=== PATIENT | female | born 1960 | race American Indian/Alaskan Native ===

== ENCOUNTER 2017-06-25 22:02 | Emergency (ER) | payer MEDICARE ==
[2017-06-25 22:07] VITALS: BP 110/68
--- NOTE | 2017-06-25 23:19 | Emergency Department Report ---
- General Chief Complaint: Upper Respiratory Infection Stated Complaint: COLD/FLU SX Time Seen by Provider: 06/25/17 22:36 Source: patient Mode of arrival: Ambulatory Limitations: No Limitations - History of Present Illness Initial Comments: 57-year-old -[place] female comes in for onset of sore throat cough and nasal congestion chest congestion headache nausea vomiting. Patient point she' s been taking [id number] medication last taken at 6 PM TheraFlu. Patient reports that she vomited 6-7 times on Friday and vomited one time today. She denies any wheezing no fever no chills. She reports no past medical history. Allergic to only be pollen and currently takes no chronic medications. MD Complaint: fever (low-grade), cough, sore throat, nasal congestion, other ( congestion) -: days(s) (3) Severity scale (0 -10): 8 Improves With: OTC cold medicine - Related Data Previous Rx's Medication Instructions Recorded Last Taken Type ALBUTEROL Inhaler [ProAir HFA 2 puff IH QID PRN #1 inhalation 06/26/17 Unknown Rx Inhaler] Benzonatate [Tessalon Perle] 100 mg PO TID PRN #30 capsule 06/26/17 Unknown Rx Levofloxacin [Levaquin TAB] 500 mg PO QDAY #5 tablet 06/26/17 Unknown Rx Allergies Allergy/AdvReac Type Severity Reaction Status Date / Time bee pollen Allergy Hives Verified 06/25/17 22:06 ED Review of Systems ROS: Stated complaint: COLD/FLU SX Other details as noted in HPI Constitutional: denies: chills, fever Eyes: denies: eye pain, eye discharge, vision change ENT: denies: ear pain, throat pain Respiratory: cough, shortness of breath Cardiovascular: denies: chest pain, palpitations Endocrine: no symptoms reported Gastrointestinal: nausea, vomiting. denies: abdominal pain, diarrhea Genitourinary: denies: urgency, dysuria, discharge Musculoskeletal: denies: back pain, joint swelling, arthralgia Skin: denies: rash, lesions Neurological: denies: headache, weakness, paresthesias Psychiatric: denies: anxiety, depression Hematological/Lymphatic: denies: easy bleeding, easy bruising ED Past Medical Hx - Past Medical History Previous Medical History?: No - Surgical History Additional Surgical History: Tubal ligation, knee, throat, Hyst - Social History Smoking Status: Never Smoker Substance Use Type: Alcohol - Medications Home Medications: Home Medications Medication Instructions Recorded Confirmed Last Taken Type ALBUTEROL Inhaler [ProAir HFA 2 puff IH QID PRN #1 inhalation 06/26/17 Unknown Rx Inhaler] Benzonatate [Tessalon Perle] 100 mg PO TID PRN #30 capsule 06/26/17 Unknown Rx Levofloxacin [Levaquin TAB] 500 mg PO QDAY #5 tablet 06/26/17 Unknown Rx ED Physical Exam - General Limitations: No Limitations General appearance: alert, in no apparent distress - Head Head exam: Present: atraumatic, normocephalic - Eye Eye exam: Present: normal appearance - ENT ENT exam: Present: mucous membranes moist - Expanded ENT Exam Expanded Throat exam: Positive: other (oropharynx erythematous) - Neck Neck exam: Present: normal inspection - Respiratory Respiratory exam: Present: normal lung sounds bilaterally. Absent: respiratory distress - Cardiovascular Cardiovascular Exam: Present: tachycardia - GI/Abdominal GI/Abdominal exam: Present: soft, normal bowel sounds - Extremities Exam Extremities exam: Present: normal inspection - Back Exam Back exam: Present: normal inspection - Neurological Exam Neurological exam: Present: alert, oriented X3 ED Course Vital Signs 06/25/17 22:06 Temperature 99.6 F Pulse Rate 100 H Respiratory 20 Rate Blood Pressure 110/68 O2 Sat by Pulse 96 Oximetry ED Medical Decision Making - Radiology Data Radiology results: report reviewed, image reviewed FINDINGS: Heart: Normal. Mediastinum/Vessels: Normal. Lungs/Pleural space: Subsegmental atelectatic changes are noted in bilateral lower lungs. An inhomogeneous patchy density is noted in the right lower lung. There is mild elevation of right hemidiaphragm. Pleural spaces are clear.. Bony thorax: No acute osseous abnormality. Other: IMPRESSION: A patchy density in the right lower lung most likely represent early infiltrates.. - Medical Decision Making Assessment evaluated by this provider fast track. Chest x-ray was ordered rapid strep ordered. Review of x-ray shows patient has early infiltrate. We' ll treat patient with Levaquin for 5 days. Have her follow up with her primary care provider. Critical care attestation.: If time is entered above; I have spent that time in minutes in the direct care of this critically ill patient, excluding procedure time. ED Disposition Clinical Impression: Pulmonary infiltrate in right lung on chest x-ray Disposition: [id number] TO HOME OR SELFCARE Is pt being admited?: No Does the pt Need Aspirin: No Condition: Stable Instructions: Community-acquired Pneumonia (ED) Additional Instructions: Please complete antibiotics as prescribed. He can take Tylenol or Motrin for fever. You can use an inhaler to help with her cough. Prescriptions: ALBUTEROL Inhaler [ProAir HFA Inhaler] 2 puff IH QID PRN #1 inhalation PRN Reason: Shortness Of Breath Benzonatate [Tessalon Perle] 100 mg PO TID PRN #30 capsule PRN Reason: Cough Levofloxacin [Levaquin TAB] 500 mg PO QDAY #5 tablet Referrals: EDER MASON MD [Primary Care Provider] - 3-5 Days Forms: Work/School Release Form(ED), Accompanied Note
[2017-06-25 23:40] LABS: Bilirubin,Urine NEG (Negative); Blood,Urine SM (Negative); Color,Urine Amber (Yellow); Hyaline Casts,Urine 6 /LPF; Mucus,Urine 3+ /HPF
--- NOTE | 2017-06-25 23:53 | XRay Report ---
FINAL REPORT PROCEDURE: XR CHEST ROUTINE 2V TECHNIQUE: PA and lateral chest radiographs were obtained. CPT 44882 HISTORY: chest congestion with low-grade fever COMPARISON: No prior studies are available for comparison. FINDINGS: Heart: Normal. Mediastinum/Vessels: Normal. Lungs/Pleural space: Subsegmental atelectatic changes are noted in bilateral lower lungs. An inhomogeneous patchy density is noted in the right lower lung. There is mild elevation of right hemidiaphragm. Pleural spaces are clear.. Bony thorax: No acute osseous abnormality. Other: IMPRESSION: A patchy density in the right lower lung most likely represent early infiltrates..
== END 2017-06-26 00:14 | disposition home or self-care (01) ==
LOC: ED 22:02
DX: J82 Pulmonary eosinophilia, not elsewhere classified (principal); Z91.030 Bee allergy status; Z98.51 Tubal ligation status
CPT/HCPCS: 71046; 81001; 87116; 87430; 99283